=== PATIENT | male | born 1990 | race Caucasian/White ===

== ENCOUNTER 2018-09-20 12:53 | Emergency (ER) | payer OTHER ==
[~2018-09-20] VITALS: Ht 167.6 cm; Wt 95.8 kg
[2018-09-20 12:54] VITALS: BP 148/92
--- NOTE | 2018-09-20 15:10 | REP ---
Left hand series: Four views. History: Trauma. Findings: Four views of the left hand demonstrate subcortical cyst formation in the distal end of the third metacarpal. There is no evidence of fracture or subluxation. Lateral view suggests the possibility of an old healed fracture of the fourth metacarpal. No acute fracture is seen. Impression: No acute fracture noted. Electronically Signed by Siddhartha Law MD 09/20/2018 08:15 P
== END 2018-09-20 14:59 | disposition home or self-care (01) ==
LOC: M ED 12:53
DX: S66.912A Strain of unspecified muscle, fascia and tendon at wrist and hand level, left hand, initial encounter (principal); X58.XXXA Exposure to other specified factors, initial encounter; Y92.89 Other specified places as the place of occurrence of the external cause; Y99.0 Civilian activity done for income or pay; F17.210 Nicotine dependence, cigarettes, uncomplicated